=== PATIENT | female | born 1970 | race African-American/Black ===

== ENCOUNTER 2020-07-07 20:06 | Emergency (ER) | payer OTHER ==
[2020-07-07 20:16] VITALS: BP 127/83; PULSE 78; TEMP 98; BMI 26.5
[2020-07-07] MEDS ORDERED: LIDOCAINE 5% TOPICAL PATCH TP ONE (21:23)
[2020-07-07] MEDS ORDERED: KETOROLAC TROMETHAMINE 30 MG/1 ML VIAL IM ONE (21:23)
[2020-07-07] MEDS ORDERED: ACETAMINOPHEN 500 MG TABLET (FP) PO ONE (21:23)
[2020-07-07] MEDS ORDERED: METHOCARBAMOL 500 MG TABLET PO ONE (21:23)
[2020-07-07] MEDS ORDERED: METHOCARBAMOL 500 MG TABLET ONE (21:30)
[2020-07-07] MEDS ORDERED: ACETAMINOPHEN 325 MG TABLET (FP) ONE ×2 (21:30→21:37)
[2020-07-07] MEDS ORDERED: KETOROLAC TROMETHAMINE 30 MG/1 ML VIAL ONE (21:32)
[2020-07-07] MEDS ORDERED: LIDOCAINE 5% TOPICAL PATCH ONE (21:45)
[2020-07-08] MEDS ORDERED: LIDOCAINE PATCH REMOVAL MC SCH (09:30)
== END 2020-07-07 22:23 | disposition home or self-care (01) ==
LOC: JER 20:06
PROC: 3E0233Z Introduction of Anti-inflammatory into Muscle, Percutaneous Approach (ICD-10-PCS; principal; 2020-07-07)
DX: M54.2 Cervicalgia (principal)
CPT/HCPCS: 99284-25